=== PATIENT | male | born 1950 | race Caucasian/White ===

== ENCOUNTER 2017-01-01 16:44 | Emergency (ER) | payer OTHER, BC ==
[2017-01-01 16:52] VITALS: RESP 18; TEMP 98
[2017-01-01] MEDS ORDERED: HYDROmorphONE/DILAUDID 1 MG/ML SYR IVP ONE (16:54)
[2017-01-01] MEDS ORDERED: FAMOTIDINE 20 MG in NS 100 ML IV ONE (16:54)
[2017-01-01] MEDS ORDERED: NS 1,000 ML IV ONE (16:54)
[2017-01-01] MEDS ORDERED: ONDANSETRON 4 MG/2 ML VIAL IVP ONE (16:54)
[2017-01-01 17:26] LABS: % IMMATURE GRANULYOCYTES 0.3 % (0.0-1.1); ABSOLUTE IMMATURE GRANULOCYTES 0.03 10^3/uL (0.00-0.10); ADD DIFF? NO; ADD MORPH? NO; ADD SCAN? NO; ATYPICAL LYMPHOCYTE FLAG 0 (0-99); FRAGMENT RBC FLAG 0 (0-99); HEMATOCRIT 40.6 % (40.0-51.0); HEMOGLOBIN 14.7 g/dL (13.7-17.5); LEFT SHIFT FLG 0 (0-99); LIPEMIA HEMOLYSIS FLAG 90 (0-99); MEAN CELL HEMOGLOBIN 32.5 pg (27.9-34.1); MEAN CELL HEMOGLOBIN CONCENTR. 36.2 g/dL (32.4-36.7); MEAN CELL VOLUME 89.6 fL (81.5-99.8); MEAN PLATELET VOLUME 9.1 fL (8.7-11.7); PLATELET CLUMPS FLAG 0 (0-99); PLATELET COUNT 261 10^3/uL (150-400); RED BLOOD CELL COUNT 4.53 10^6/uL (4.40-6.38); RED CELL DISTRIBUTION WIDTH 12.5 % (11.5-15.2)
--- NOTE | 2017-01-01 17:26 | EDPHY ---
H & P Time Seen by Provider: 01/01/17 16:54 HPI/ROS: HPI Vomiting and diarrhea, chills. 66-year-old male by private vehicle. He is visiting from [place]. He flew in this morning. Shortly after getting off the airplane he developed chills followed by nausea and then diarrhea. He describes multiple episodes of explosive watery diarrhea. He has had 1 episode of nonbilious, nonbloody vomiting. He denies any significant abdominal pain but states that he feels mildly sore in his abdomen. He denies fever. He reports his episode of vomiting was just prior to arrival and this is what prompted him to come to the emergency department. ROS: Constitutional: No fever, as above. No weakness. Eyes: No discharge. No changes in vision. ENT: No sore throat. No nasal congestion or rhinorrhea. Respiratory: No cough. No shortness of breath. Cardiac: No chest pain, no palpitations. Gastrointestinal: As above. Genitourinary: No hematuria. No dysuria or increased frequency with urination. Musculoskeletal: No back pain. No neck pain. No myalgias or arthralgias. Skin: No rashes. Neurological: No headache. No focal weakness or altered sensation. Past medical history: Hyperlipidemia, type 2 diabetes, hypothyroidism, high blood pressure, cholecystectomy, appendectomy, hernia repair, orthopedic surgeries. All of his health care is in [place]. Social history: Here visiting family. Nonsmoker. Physical Exam: General Appearance: Alert, no distress. This patient is responding to questions appropriately and in full sentences. This patient appears well- hydrated and well-nourished. Eyes: Pupils equal and round no pallor or injection. No lid edema, erythema or injection. Respiratory: There are no retractions, lungs are clear to auscultation with good air movement bilaterally. Cardiovascular: Regular rate and rhythm. No murmur. Gastrointestinal: Moderately obese habitus. Abdomen is soft with mild vague tenderness on palpation throughout, no masses, bowel sounds normal. No focal tenderness at McBurney's point. No Caraballo sign. Neurological: Motor sensory function is grossly intact. Cranial nerves are normal. Gait is normal. Skin: Warm and dry, no rashes. Musculoskeletal: Neck is supple and nontender. Extremities are symmetrical. All joints range without pain or impingement. Psychiatric: No agitation. No depression. Database: EKG: Imaging: Procedures: Emergency department course: IV placed. He was placed on a monitor. He was started on IV normal saline with 1 L to be given over the next hour. He was initially given 0.25 mg of IV hydromorphone, 4 mg of IV Zofran and 20 mg of IV Pepcid. 6:00 p.m., blood work reviewed and unremarkable. His vital signs have been normal. 6:15 p.m., patient re-evaluated. Resting comfortably at this time. He has not had any further vomiting in the emergency department. He is tolerating oral fluids. No further diarrhea. Repeat abdominal exam he is soft, nontender nondistended. He does feel comfortable going home and I feel he is safe for discharge. Follow-up and return to emergency department precautions have been reviewed with him. All of his questions were answered. He was discharged in good condition with his family who is driving him. Differential Diagnosis: The differential diagnosis on this patient includes but is not limited to food borne illness, viral gastroenteritis. Bowel obstruction, surgical etiology unlikely. This represents a partial list of diagnoses considered. These considerations are based on history, physical exam, past history, reassessment and diagnostic testing. Smoking Status: Current every day smoker Constitutional: Initial Vital Signs Temperature (C) 36.6 C 01/01/17 16:50 Heart Rate 78 01/01/17 16:50 Respiratory Rate 18 01/01/17 16:50 Blood Pressure 108/60 01/01/17 16:50 O2 Sat (%) 96 01/01/17 16:50 O2 Delivery Mode Room Air Allergies/Adverse Reactions: No Known Allergies Allergy (Unverified 01/01/17 16:48) Home Medications: Medication Instructions Recorded Carbamazepine 01/01/17 Crestor 01/01/17 Finestride 01/01/17 GLIPIZIDE 01/01/17 Gemfibrozil 01/01/17 Hydrochlorothiazide 01/01/17 Klor-Con 10 01/01/17 Levothyroxine 01/01/17 Lisinopril 01/01/17 Metformin HCl 01/01/17 Metroprol 01/01/17 NIFEdipine 01/01/17 Ondansetron Odt [Zofran Odt 4 mg 4 mg PO Q4PRN PRN #10 tab 01/01/17 (*)] Terazosin HCl 01/01/17 Terbinafine 01/01/17 Medical Decision Making - Data Points Laboratory Results: Laboratory Results 01/01/17 17:20 01/01/17 17:20 01/01/17 01/01/17 17:20 17:20 WBC 8.70 10^3/uL 10^3/uL (3.80-9.50) RBC 4.53 10^6/uL 10^6/uL (4.40-6.38) Hgb 14.7 g/dL g/dL (13.7-17.5) Hct 40.6 % % (40.0-51.0) MCV 89.6 fL fL (81.5-99.8) MCH 32.5 pg pg (27.9-34.1) MCHC 36.2 g/dL g/dL (32.4-36.7) RDW 12.5 % % (11.5-15.2) Plt Count 261 10^3/uL 10^3/uL (150-400) MPV 9.1 fL fL (8.7-11.7) Neut % (Auto) 86.5 % H % (39.3-74.2) Lymph % (Auto) 6.4 % L % (15.0-45.0) [place] % (Auto) 4.9 % % (4.5-13.0) Eos % (Auto) 1.4 % % (0.6-7.6) Baso % (Auto) 0.5 % % (0.3-1.7) Nucleat RBC Rel Count 0.0 % % (0.0-0.2) Absolute Neuts (auto) 7.52 10^3/uL H 10^3/uL (1.70-6.50) Absolute Lymphs (auto) 0.56 10^3/uL L 10^3/uL (1.00-3.00) Absolute Monos (auto) 0.43 10^3/uL 10^3/uL (0.30-0.80) Absolute Eos (auto) 0.12 10^3/uL 10^3/uL (0.03-0.40) Absolute Basos (auto) 0.04 10^3/uL 10^3/uL (0.02-0.10) Absolute Nucleated RBC 0.00 10^3/uL 10^3/uL (0-0.01) Immature Gran % 0.3 % % (0.0-1.1) Immature Gran # 0.03 10^3/uL 10^3/uL (0.00-0.10) Sodium 138 mEq/L mEq/L (134-144) Potassium 3.8 mEq/L mEq/L (3.5-5.2) Chloride 101 mEq/L mEq/L (97-110) Carbon Dioxide 22 mEq/l mEq/l (22-31) Anion Gap 15 mEq/L mEq/L (8-16) BUN 24 mg/dL H mg/dL (7-23) Creatinine 1.0 mg/dL mg/dL (0.7-1.3) Estimated GFR > 60 Glucose 116 mg/dL H mg/dL (70-100) Calcium 9.1 mg/dL mg/dL (8.5-10.4) Total Bilirubin 0.6 mg/dL mg/dL (0.1-1.4) Conjugated Bilirubin 0.4 mg/dL mg/dL (0.0-0.5) Unconjugated Bilirubin 0.2 mg/dL mg/dL (0.0-1.1) AST 34 IU/L IU/L (17-59) ALT 30 IU/L IU/L (21-72) Alkaline Phosphatase 71 IU/L IU/L (38-126) Total Protein 7.4 g/dL g/dL (6.3-8.2) Albumin 4.2 g/dL g/dL (3.5-5.0) Lipase 96.0 IU/L IU/L (23-300) Medications Given: Discontinued Medications Hydromorphone HCl (Dilaudid) 0.25 mg IVP EDNOW ONE Stop: 01/01/17 16:55 Last Admin: 01/01/17 17:32 Dose: 0.25 mg Sodium Chloride (Ns) 1,000 mls @ 0 mls/hr IV ONCE ONE PRN Reason: Wide Open Stop: 01/01/17 16:55 Last Admin: 01/01/17 17:20 Dose: 1,000 mls Famotidine 20 mg/ Sodium (Chloride) 102 mls @ 408 mls/hr IV EDNOW ONE Stop: 01/01/17 17:08 Last Admin: 01/01/17 17:40 Dose: 102 mls Ondansetron HCl (Zofran) 4 mg IVP EDNOW ONE Stop: 01/01/17 16:55 Last Admin: 01/01/17 17:30 Dose: 4 mg Departure - Departure Disposition: Home, Routine, Self-Care Clinical Impression: Vomiting and diarrhea Condition: Good Instructions: Gastroenteritis (ED) Additional Instructions: Read and follow provided instructions. Follow-up with your primary care physician in 2-3 days as needed for re- evaluation. Take medication as prescribed for nausea. Keep well hydrated. A good fluid to drink is Gatorade mixed with water over ice in a 1-1 dilution. Return to the emergency department for worsening abdominal pain, vomiting and inability to keep fluids down despite medications, high fever or other serious concerns. Referrals: NONE *PRIMARY CARE P,. [Primary Care Provider] - As per Instructions Prescriptions: Ondansetron Odt [Zofran Odt 4 mg (*)] 4 mg PO Q4PRN PRN #10 tab PRN Reason: For Nausea & Vomiting
[2017-01-01 17:42] LABS: ALANINE AMINOTRANSFERASE 30 IU/L (21-72); ALBUMIN 4.2 g/dL (3.5-5.0); ALKALINE PHOSPHATASE 71 IU/L (38-126); ANION GAP 15 mEq/L (8-16); ASPARTATE AMINOTRANSFERASE 34 IU/L (17-59); BILIRUBIN,TOTAL 0.6 mg/dL (0.1-1.4); BILIRUBIN-CONJUGATED 0.4 mg/dL (0.0-0.5); BILIRUBIN-UNCONJUGATED 0.2 mg/dL (0.0-1.1); CALCIUM 9.1 mg/dL (8.5-10.4); CARBON DIOXIDE 22 mEq/l (22-31); CHLORIDE 101 mEq/L (97-110); GLOMERULAR FILTRATION RATE > 60; GLUCOSE 116 mg/dL (70-100); POTASSIUM 3.8 mEq/L (3.5-5.2); SODIUM 138 mEq/L (134-144); TOTAL PROTEIN 7.4 g/dL (6.3-8.2)
[2017-01-01 18:24] VITALS: BP 122/67; PULSE 72; O2SAT 92
== END 2017-01-01 18:28 | disposition home or self-care (01) ==
LOC: CED 16:44
DX: R19.7 Diarrhea, unspecified (principal); R11.10 Vomiting, unspecified; E11.9 Type 2 diabetes mellitus without complications; F17.200 Nicotine dependence, unspecified, uncomplicated; I10 Essential (primary) hypertension; Z79.84 Long term (current) use of oral hypoglycemic drugs
CPT/HCPCS: 96374; 96375; 99284; J1170; J2405; 80048-PO; 80076-PO; 83690-PO; 85025-PO